=== PATIENT | male | born 1950 | race Caucasian/White ===

== ENCOUNTER → 2019-01-25 | Outpatient (CLI) | payer MEDICARE, OTHER ==
[~2019-01-25] MED LIST: ALEVE220 MG; ASPIRIN81 M1; AUGMENTIN 875 M1 TAB PO; CIPRODEX 0.3%-7.5 ML OT; CITRACAL/VIT D; MEDROL DOSEPAK4 MG PO; MULTIVITAMIN1 CTB; PREVACID30 M1; PREVACID30 MG; RESVERATROL; TENORETIC-25/501 TAB; VIAGRA; VITAMIN D1000 IU
== END | disposition home or self-care (01) ==
LOC: US 12:22
DX: N28.89 Other specified disorders of kidney and ureter (principal)

== ENCOUNTER → 2019-04-29 | Outpatient (CLI) | payer MEDICARE, OTHER | END | disposition home or self-care (01) | LOC: RAD 09:38 | DX: M19.071 Primary osteoarthritis, right ankle and foot (principal) ==

== ENCOUNTER → 2020-12-21 | Outpatient (CLI) | payer MEDICARE, OTHER ==
[~2020-12-21] MED LIST changes: +ATENOLOL-CHLOR1 EAC1 PO; +ATORVASTATIN CA40 M1 PO; +CO Q-1050 M1 PO; +NYSTATIN1 EAC3 MC; +OMEPRAZOLE MAGN20 MG PO; +RESVERATROL250 MG PO; +TYLENOL325 M2 PO; +ULTRAM50 MG PO
== END | disposition home or self-care (01) ==
LOC: COVID19 11:39
PROVIDERS: ATTEND Family Medicine
DX: R53.81 Other malaise (principal); Z20.822 Contact with and (suspected) exposure to COVID-19

== ENCOUNTER 2020-12-27 21:04 | Inpatient (IN) | payer MEDICARE, OTHER ==
[~2020-12-27] VITALS: Ht 175.3 cm; Wt 114.4 kg
[~2020-12-27 21:04] MED LIST changes: -ATENOLOL-CHLOR1 EAC1 PO; -ATORVASTATIN CA40 M1 PO; -CO Q-1050 M1 PO; -NYSTATIN1 EAC3 MC; -OMEPRAZOLE MAGN20 MG PO; -RESVERATROL250 MG PO; -TYLENOL325 M2 PO; -ULTRAM50 MG PO
[2020-12-27 21:09] VITALS: BP 102/52
[2020-12-27 22:02] LABS: BASO % 0.6 % (0.0-1.0); EOS # 0.1 10*3/uL (0.0-0.4); HEMATOCRIT 41.2 % (42.0-52.0); LYMPH # 1.5 10*3/uL (1.3-4.4); MEAN CELL VOLUME 97.4 fl (80.0-94.0); MEAN CORPUSCULAR HGB CONC 31.8 g/dl (33.0-37.0); MEAN PLATELET VOLUME 9.5 fl (9.6-12.3); MONO # 0.7 10*3/uL (0.1-1.0); MONO % 9.8 % (3.0-9.0); NEUT # 4.2 10*3/uL (2.3-7.9); NEUT % 63.4 % (47.0-73.0); PLATELET COUNT AUTOMATED 168 10*3/uL (130-400); RED BLOOD COUNT 4.23 10*6/uL (4.50-5.90); RED CELL DISTRI WIDTH 15.5 % (0-14.5); WHITE BLOOD COUNT 6.6 10*3/uL (4.8-10.8)
[2020-12-27 22:12] LABS: ACT PARTIAL THROMBO TIME 28.8 SECONDS (20.0-32.1); INTERNATIONAL NORM RATIO 1.2 (2.0-3.5)
[2020-12-27 22:13] LABS: ALBUMIN 2.5 gm/dl (3.1-4.5); ALKALINE PHOSPHATASE 226 U/L (45-117); BUN 49 mg/dl (7-24); CHLORIDE 101 mmol/L (98-107); CREATININE 1.64 mg/dL (0.70-1.30); LIPASE 150 U/L (73-393); SGOT/AST 198 IU/L (3-35); SGPT/ALT 48 U/L (12-78); SODIUM 136 mmol/L (136-145); TOTAL PROTEIN 7.1 gm/dL (6.4-8.2)
[2020-12-27 22:23] LABS: TROPONIN I < 0.015 ng/ml (<0.045)
[2020-12-27 23:19] VITALS: BP 88/56
[2020-12-27 23:56] VITALS: BP 103/48
[2020-12-27] MEDS ORDERED: OMEPRAZOLE MAGN20 MG PO (23:58)
[2020-12-27] MEDS ORDERED: ATENOLOL-CHLOR1 EAC1 PO (23:58)
[2020-12-27] MEDS ORDERED: ATORVASTATIN CA40 M1 PO (23:59)
[2020-12-28] VITALS (7 sets, daily range): BP systolic 80–110; BP diastolic 44–62
[2020-12-28] MEDS ORDERED: CO Q-1050 M1 PO (04:02)
[2020-12-28] MEDS ORDERED: RESVERATROL250 MG PO (04:03)
[2020-12-28] MEDS ORDERED: TYLENOL325 M2 PO (04:04)
[2020-12-28] MEDS ORDERED: NYSTATIN1 EAC3 MC (04:05)
[2020-12-28] MEDS ORDERED: ULTRAM50 MG PO (04:06)
[2020-12-28 06:50] LABS: ACT PARTIAL THROMBO TIME 30.1 SECONDS (20.0-32.1); INTERNATIONAL NORM RATIO 1.1 (2.0-3.5)
[2020-12-28 06:57] LABS: ALBUMIN 2.3 gm/dl (3.1-4.5); FREE T4 1.24 ng/dl (0.76-1.46); POTASSIUM 4.5 mmol/L (3.5-5.1)
[2020-12-28 07:05] LABS: CREATININE 1.42 mg/dL (0.70-1.30); THYROID STIM HORMONE (HS) 0.426 uIU/ml (0.358-4.75); TOTAL PROTEIN 6.1 gm/dL (6.4-8.2)
[2020-12-28 07:15] LABS: BASO % 0.5 % (0.0-1.0); EOS # 0.2 10*3/uL (0.0-0.4); EOS % 2.5 % (1.0-4.0); HEMATOCRIT 39.7 % (42.0-52.0); LYMPH # 1.2 10*3/uL (1.3-4.4); LYMPH % 20.1 % (27.0-41.0); MEAN CORPUSCULAR HGB 30.8 pg (27.0-31.0); MEAN CORPUSCULAR HGB CONC 30.5 g/dl (33.0-37.0); MEAN PLATELET VOLUME 9.7 fl (9.6-12.3); MONO # 0.6 10*3/uL (0.1-1.0); MONO % 9.4 % (3.0-9.0); NEUT # 4.1 10*3/uL (2.3-7.9); NEUT % 67.2 % (47.0-73.0); PLATELET COUNT AUTOMATED 154 10*3/uL (130-400); RED BLOOD COUNT 3.93 10*6/uL (4.50-5.90); RED CELL DISTRI WIDTH 15.6 % (0-14.5); WHITE BLOOD COUNT 6.1 10*3/uL (4.8-10.8)
[2020-12-28 07:54] LABS: VITAMIN D, 25-HYDROXY 52.4 ng/mL (30-100)
[2020-12-28 22:09] LABS: BILIRUBIN 2+ (Negative); BLOOD Negative (Negative); CLARITY Clear (Clear); COLOR Dark Yellow (Yellow); GLUCOSE Negative (Negative); KETONE Trace (Negative); LEUKO ESTERASE 1+ (Negative); NITRITE Negative (Negative)
[2020-12-28 22:33] LABS: EPITHELIAL CELLS 31-40
[2020-12-28 22:35] LABS: BACTERIA 1+
[2020-12-29] VITALS: BP 107/53
[2020-12-29 06:19] LABS: BASO % 0.5 % (0.0-1.0); EOS # 0.1 10*3/uL (0.0-0.4); EOS % 1.8 % (1.0-4.0); HEMATOCRIT 36.2 % (42.0-52.0); LYMPH # 1.3 10*3/uL (1.3-4.4); LYMPH % 21.7 % (27.0-41.0); MEAN CELL VOLUME 99.7 fl (80.0-94.0); MEAN CORPUSCULAR HGB 31.4 pg (27.0-31.0); MEAN CORPUSCULAR HGB CONC 31.5 g/dl (33.0-37.0); MEAN PLATELET VOLUME 9.9 fl (9.6-12.3); MONO # 0.7 10*3/uL (0.1-1.0); MONO % 10.9 % (3.0-9.0); NEUT # 3.9 10*3/uL (2.3-7.9); NEUT % 64.8 % (47.0-73.0); PLATELET COUNT AUTOMATED 157 10*3/uL (130-400); RED BLOOD COUNT 3.63 10*6/uL (4.50-5.90); RED CELL DISTRI WIDTH 15.7 % (0-14.5)
[2020-12-29 06:28] LABS: CREATININE 1.53 mg/dL (0.70-1.30); POTASSIUM 3.8 mmol/L (3.5-5.1)
[2020-12-29 07:55] VITALS: BP 98/60
[2020-12-29 12:00] VITALS: BP 112/50
[2020-12-29 16:00] VITALS: BP 110/50
[2020-12-29 20:00] VITALS: BP 117/71
[2020-12-30] VITALS: BP 96/66
[2020-12-30 06:00] LABS: CREATININE 1.43 mg/dL (0.70-1.30); POTASSIUM 3.7 mmol/L (3.5-5.1)
[2020-12-30 06:20] LABS: BASO % 0.4 % (0.0-1.0); EOS # 0.1 10*3/uL (0.0-0.4); EOS % 1.5 % (1.0-4.0); HEMATOCRIT 37.5 % (42.0-52.0); LYMPH # 1.1 10*3/uL (1.3-4.4); LYMPH % 21.1 % (27.0-41.0); MEAN CELL VOLUME 100.3 fl (80.0-94.0); MEAN CORPUSCULAR HGB CONC 30.9 g/dl (33.0-37.0); MEAN PLATELET VOLUME 9.6 fl (9.6-12.3); MONO # 0.7 10*3/uL (0.1-1.0); MONO % 12.3 % (3.0-9.0); NEUT # 3.4 10*3/uL (2.3-7.9); NEUT % 64.3 % (47.0-73.0); PLATELET COUNT AUTOMATED 143 10*3/uL (130-400); RED BLOOD COUNT 3.74 10*6/uL (4.50-5.90); WHITE BLOOD COUNT 5.3 10*3/uL (4.8-10.8)
[2020-12-30 08:00] VITALS: BP 116/81
[2020-12-30 12:00] VITALS: BP 116/62
[2020-12-30 15:42] VITALS: BP 107/65
[2020-12-30 20:00] VITALS: BP 78/54; BP 88/56
[2020-12-30 21:45] VITALS: BP 76/56
[2020-12-31] VITALS (76 sets, daily range): BP systolic 72–139; BP diastolic 32–90
[2020-12-31 05:53] LABS: ALBUMIN 2.1 gm/dl (3.1-4.5); CREATININE 1.87 mg/dL (0.70-1.30); POTASSIUM 3.8 mmol/L (3.5-5.1); TOTAL PROTEIN 6.2 gm/dL (6.4-8.2)
[2020-12-31 05:55] LABS: CEA 730.9 ng/mL
[2020-12-31 06:34] LABS: BASO % 0.2 % (0.0-1.0); EOS # 0.1 10*3/uL (0.0-0.4); EOS % 0.9 % (1.0-4.0); HEMATOCRIT 37.9 % (42.0-52.0); LYMPH # 1.7 10*3/uL (1.3-4.4); LYMPH % 20.2 % (27.0-41.0); MEAN CORPUSCULAR HGB 31.3 pg (27.0-31.0); MEAN CORPUSCULAR HGB CONC 29.6 g/dl (33.0-37.0); MEAN PLATELET VOLUME 9.8 fl (9.6-12.3); MONO # 1.1 10*3/uL (0.1-1.0); NEUT # 5.6 10*3/uL (2.3-7.9); NEUT % 65.2 % (47.0-73.0); RED BLOOD COUNT 3.58 10*6/uL (4.50-5.90); RED CELL DISTRI WIDTH 16.1 % (0-14.5); WHITE BLOOD COUNT 8.6 10*3/uL (4.8-10.8)
[2020-12-31 06:40] LABS: MEAN CELL VOLUME 105.9 fl (80.0-94.0); PLATELET COUNT AUTOMATED 187 10*3/uL (130-400)
[2020-12-31 08:38] LABS: BILIRUBIN Negative (Negative); BLOOD Negative (Negative); CLARITY Turbid (Clear); COLOR Yellow (Yellow); GLUCOSE Negative (Negative); KETONE Trace (Negative); LEUKO ESTERASE Negative (Negative); NITRITE Negative (Negative); SPECIFIC GRAVITY >= 1.030 (1.001-1.030)
[2020-12-31 09:22] LABS: BACTERIA 2+
[2020-12-31 22:26] LABS: BUN 43 mg/dl (7-24); CHLORIDE 105 mmol/L (98-107); CREATININE 2.61 mg/dL (0.70-1.30); POTASSIUM 3.8 mmol/L (3.5-5.1); SODIUM 134 mmol/L (136-145)
[2020-12-31 22:28] LABS: TROPONIN I < 0.015 ng/ml (<0.045)
[2021-01-01] VITALS (95 sets, daily range): BP systolic 48–110; BP diastolic 31–66
[2021-01-01 00:40] LABS: ABG BASE EXCESS -15.4 mmol/L (-2.0-2.0); ARTERIAL BLOOD GAS PH 7.052 (7.35-7.45)
[2021-01-01 06:04] LABS: ALBUMIN 1.9 gm/dl (3.1-4.5); CREATININE 2.87 mg/dL (0.70-1.30); POTASSIUM 3.7 mmol/L (3.5-5.1); TOTAL PROTEIN 5.8 gm/dL (6.4-8.2)
[2021-01-01 06:40] LABS: BASO % 0.2 % (0.0-1.0); EOS # 0.1 10*3/uL (0.0-0.4); EOS % 0.5 % (1.0-4.0); HEMATOCRIT 36.9 % (42.0-52.0); LYMPH # 1.6 10*3/uL (1.3-4.4); LYMPH % 12.8 % (27.0-41.0); MEAN CELL VOLUME 106.3 fl (80.0-94.0); MEAN CORPUSCULAR HGB 31.7 pg (27.0-31.0); MEAN CORPUSCULAR HGB CONC 29.8 g/dl (33.0-37.0); MEAN PLATELET VOLUME 9.3 fl (9.6-12.3); MONO # 1.3 10*3/uL (0.1-1.0); MONO % 10.7 % (3.0-9.0); NEUT # 9.1 10*3/uL (2.3-7.9); NEUT % 74.9 % (47.0-73.0); NUCLEATED RED BLOOD CELL 0.1 10*3/uL (0.0-0.0); NUCLEATED RED BLOOD CELL 0.7 % (0.0-0.0); PLATELET COUNT AUTOMATED 214 10*3/uL (130-400); RED BLOOD COUNT 3.47 10*6/uL (4.50-5.90); RED CELL DISTRI WIDTH 15.9 % (0-14.5); WHITE BLOOD COUNT 12.2 10*3/uL (4.8-10.8)
[2021-01-01 07:54] LABS: ABG BASE EXCESS -15.8 mmol/L (-2.0-2.0)
[2021-01-01 07:55] LABS: ARTERIAL BLOOD GAS PH 6.944 (7.35-7.45)
[2021-01-02] VITALS (41 sets, daily range): BP systolic 40–59; BP diastolic 30–39
[2021-01-02 08:24] LABS: MEAN CORPUSCULAR HGB 31.3 pg (27.0-31.0); MEAN CORPUSCULAR HGB CONC 30.6 g/dl (33.0-37.0); MEAN PLATELET VOLUME 9.1 fl (9.6-12.3); NUCLEATED RED BLOOD CELL 0.2 10*3/uL (0.0-0.0); NUCLEATED RED BLOOD CELL 1.8 % (0.0-0.0); RED BLOOD COUNT 3.13 10*6/uL (4.50-5.90); RED CELL DISTRI WIDTH 14.9 % (0-14.5); WHITE BLOOD COUNT 10.2 10*3/uL (4.8-10.8)
[2021-01-02 08:25] LABS: MEAN CELL VOLUME 102.2 fl (80.0-94.0); PLATELET COUNT AUTOMATED 139 10*3/uL (130-400)
[2021-01-02 08:37] LABS: ALBUMIN 1.5 gm/dl (3.1-4.5); CREATININE 3.42 mg/dL (0.70-1.30); POTASSIUM 3.5 mmol/L (3.5-5.1); TOTAL PROTEIN 4.7 gm/dL (6.4-8.2)
[2021-01-02 08:39] LABS: BASOPHILS 1 % (0-1); BURR CELLS FEW; OVALOCYTES FEW; PLATELET SUFFICIENCY NORMAL (NORMAL); POLYCHROMASIA SLIGHT; TOTAL CELLS COUNTED 100 #CELLS
== END 2021-01-02 10:10 | DRG 177 ==
LOC: ED 21:04 → EDHOLD 23:54 → 4E 23:54 → 5E 12-28 00:37 → 4E 12-28 08:25 → ICCU 12-31 06:14
PROVIDERS: Hospitalist; Internal Medicine; Internal Medicine Critical Care Medicine; Physician Assistant; ADMIT Internal Medicine; ATTEND Internal Medicine
PROC: 05HY33Z Insertion of Infusion Device into Upper Vein, Percutaneous Approach (ICD-10-PCS; principal; 2020-12-31)
PROC: B54NZZA Ultrasonography of Left Upper Extremity Veins, Guidance (ICD-10-PCS; 2020-12-31)
PROC: 03HY32Z Insertion of Monitoring Device into Upper Artery, Percutaneous Approach (ICD-10-PCS; 2020-12-31)
PROC: 5A09357 Assistance with Respiratory Ventilation, Less than 24 Consecutive Hours, Continuous Positive Airway Pressure (ICD-10-PCS; 2021-01-01)
DX: J69.0 Pneumonitis due to inhalation of food and vomit (principal); N17.0 Acute kidney failure with tubular necrosis; E43 Unspecified severe protein-calorie malnutrition; J96.01 Acute respiratory failure with hypoxia; E87.2 Acidosis; E87.1 Hypo-osmolality and hyponatremia; E78.5 Hyperlipidemia, unspecified; K21.9 Gastro-esophageal reflux disease without esophagitis; E86.0 Dehydration; I10 Essential (primary) hypertension; D53.9 Nutritional anemia, unspecified; R74.01 Elevation of levels of liver transaminase levels; E80.6 Other disorders of bilirubin metabolism; Z66 Do not resuscitate; Z20.822 Contact with and (suspected) exposure to COVID-19; Z51.5 Encounter for palliative care; D72.829 Elevated white blood cell count, unspecified; E66.9 Obesity, unspecified; Z90.49 Acquired absence of other specified parts of digestive tract; Z82.49 Family history of ischemic heart disease and other diseases of the circulatory system; Z83.6 Family history of other diseases of the respiratory system; Z79.899 Other long term (current) drug therapy; Z68.39 Body mass index [BMI] 39.0-39.9, adult